=== PATIENT | male | born 1975 | race Two or more races ===

== ENCOUNTER 2020-03-31 18:50 | Emergency (ER) | payer SELFPAY ==
[~2020-03-31] VITALS: Ht 170.2 cm; Wt 77.1 kg
[2020-03-31] MEDS ORDERED: HYDROcodone-ACET 10/325MG TAB PO ONE (22:15)
[2020-03-31] MEDS ORDERED: BUPIVACAINE 0.75% INJ 10ML MPV SDV IJ ONE ×2 (22:45→23:12)
[2020-04-01] MEDS ORDERED: LIDOCAINE 1% HCL (LOCAL ANESTH.) INJ 20ML MDV ID ONE (00:45)
[2020-04-01] MEDS ORDERED: cefTRIAXone SOD 1,000 MG VL IM ONE (00:45)
[2020-04-01 02:25] VITALS: BP 110/56
[2020-04-01] MEDS ORDERED: HYDROcodone-ACET 5/325MG TAB PO ONE (04:15)
== END 2020-04-01 04:49 | disposition home or self-care (01) ==
LOC: ER 18:50
DX: S61.422A Laceration with foreign body of left hand, initial encounter (principal); S62.613A Displaced fracture of proximal phalanx of left middle finger, initial encounter for closed fracture; V49.9XXA Car occupant (driver) (passenger) injured in unspecified traffic accident, initial encounter; Y93.89 Activity, other specified; Y92.89 Other specified places as the place of occurrence of the external cause; Y99.8 Other external cause status
CPT/HCPCS: 12002; 73120; 73130; 96372; 99283; J0696; J2001; J3490